=== PATIENT | female | born 1990 | race Caucasian/White ===

== ENCOUNTER 2017-08-17 04:03 | Emergency (ER) | payer SELFPAY ==
[~2017-08-17] VITALS: Ht 167.6 cm; Wt 98.0 kg
[2017-08-17 04:06] VITALS: BP 117/77
== END 2017-08-17 05:30 | disposition left against medical advice (07) ==
LOC: ER 04:03
DX: R07.9 Chest pain, unspecified (principal); Z53.21 Procedure and treatment not carried out due to patient leaving prior to being seen by health care provider

== ENCOUNTER 2021-08-14 06:23 | Emergency (ER) | payer SELFPAY ==
[~2021-08-14] VITALS: Ht 167.6 cm; Wt 91.0 kg
[2021-08-14] MEDS ORDERED: MORPHINE SULFATE 4 MG/ML CPJ (NOT FOR IM USE) IV STA (08:01)
[2021-08-14] MEDS ORDERED: ONDANSETRON HCL 4MG/2ML INJ IV STA (08:01)
[2021-08-14] MEDS ORDERED: SODIUM CHLORIDE 0.9% 1,000 ML IV ONE (08:15)
[2021-08-14 08:30] LABS: HEMATOCRIT. 43.5 % (36.0-48.0); MEAN CORPUSCULAR VOLUME 87.1 fL (81.0-99.0); PLATELET 214 x1000/uL (130-400); RED BLOOD CELL COUNT 4.99 mill/uL (4.2-5.4); RED CELL DISTRIBUTION WIDTH 13.9 % (11.6-14.6)
[2021-08-14 08:35] LABS: CHLORIDE 105 mEq/L (98-107); PROTHROMBIN TIME 10.8 sec (9.6-11.0)
[2021-08-14 08:41] LABS: CLARITY URINE CLOUDY (CLEAR); COLOR URINE YELLOW (YELLOW); KETONES URINE 1+ (NEGATIVE); LEUKOCYTE ESTERASE URINE 3+ (NEGATIVE); NITRITE URINE POSITIVE (NEGATIVE); OCCULT BLOOD URINE 2+ (NEGATIVE); PH URINE 5.5 (4.5-8.0); PROTEIN URINE 2+ (NEGATIVE); SPECIFIC GRAVITY URINE 1.016 (1.005-1.030); UROBILINOGEN URINE 0.2 E.U./dL (0.2-1.0)
[2021-08-14 09:01] LABS: HCG SCREEN NEGATIVE
[2021-08-14] MEDS ORDERED: MORPHINE SULFATE 4 MG/ML CPJ (NOT FOR IM USE) IV ONE ×2 (09:30→12:00)
[2021-08-14 09:34] LABS: PLATELET ESTIMATE NORMAL
[2021-08-14 11:55] VITALS: BP 136/74
[2021-08-14] MEDS ORDERED: LEVO750T46 PO (12:37)
[2021-08-14] MEDS ORDERED: T3 PO (12:37)
[2021-08-14] MEDS ORDERED: LEVOFLOXACIN 250MG TABLET PO ONE (12:45)
[2021-08-14] MEDS ORDERED: LEVOFLOXACIN 750MG PREMIX 150 ML IV ONE (12:45)
== END 2021-08-14 12:58 | disposition home or self-care (01) ==
LOC: ER 06:23
DX: N39.0 Urinary tract infection, site not specified (principal); N20.0 Calculus of kidney
CPT/HCPCS: 36415; 74176; 80053; 81003; 83690; 84703; 85025; 85610; 87077; 87086; 87186; 96361; 96374; 96375; 96376; 99284; J2270; J2405; J7030; Z7610

== ENCOUNTER 2022-03-23 11:35 | Emergency (ER) | payer MEDICAID, OTHER ==
[~2022-03-23] VITALS: Ht 167.6 cm; Wt 89.0 kg
[~2022-03-23 11:35] MED LIST: LEVO750T68 PO; T3 PO
[2022-03-23 12:03] VITALS: BP 180/68
[2022-03-23] MEDS ORDERED: ACETAMINOPHEN 325MG TABLET PO STA (13:34)
[2022-03-23] MEDS ORDERED: ACET-2708 PO (15:49)
[2022-03-23] MEDS ORDERED: CYCL5TAB PO (15:49)
== END 2022-03-23 16:22 | disposition home or self-care (01) ==
LOC: ER 11:49
DX: S93.402A Sprain of unspecified ligament of left ankle, initial encounter (principal); X58.XXXA Exposure to other specified factors, initial encounter; Y93.01 Activity, walking, marching and hiking; Y92.89 Other specified places as the place of occurrence of the external cause; Y99.8 Other external cause status
CPT/HCPCS: 73590; 73610; 81025; 93971; 99284